=== PATIENT | female | born 1990 | race African-American/Black ===

== ENCOUNTER 2017-07-29 13:42 | Emergency (ER) | payer MEDICAID ==
[~2017-07-29] VITALS: Ht 154.9 cm; Wt 86.4 kg
[2017-07-29 16:00] VITALS: BP 138/78
[2017-07-29] MEDS ORDERED: SULFAMETHOX/TRIMETH DS 800-160 MG/TABLET PO ONE (17:00)
[2017-07-29] MEDS ORDERED: CEPHALEXIN MONOHYDRATE 500 MG CAPSULE PO ONE (17:00)
== END 2017-07-29 17:15 | disposition home or self-care (01) ==
LOC: EMS 13:43
DX: L73.2 Hidradenitis suppurativa (principal); N61.1 Abscess of the breast and nipple; K21.9 Gastro-esophageal reflux disease without esophagitis
CPT/HCPCS: 99283

== ENCOUNTER 2017-08-08 11:28 | Emergency (ER) | payer MEDICAID ==
[~2017-08-08] VITALS: Ht 157.5 cm; Wt 86.4 kg
[2017-08-08] MEDS ORDERED: HYDR-309 PO (11:36)
[2017-08-08] MEDS ORDERED: ANTIBIOTIC PO (11:36)
[2017-08-08 11:46] VITALS: BP 113/75
== END 2017-08-08 12:28 | disposition home or self-care (01) ==
LOC: EMS 11:29
DX: L73.2 Hidradenitis suppurativa (principal); K21.9 Gastro-esophageal reflux disease without esophagitis
CPT/HCPCS: 99282

== ENCOUNTER 2017-11-16 12:09 | Emergency (ER) | payer MEDICAID ==
[~2017-11-16] VITALS: Ht 154.9 cm; Wt 90.9 kg
[~2017-11-16 12:09] MED LIST: ANTIBIOTIC PO; HYDR-309 PO
[2017-11-16] MEDS ORDERED: KETOROLAC TROMETHAMINE 60 MG/2 ML VIAL IM ONE (13:45)
[2017-11-16 13:50] VITALS: BP 127/95
== END 2017-11-16 14:24 | disposition home or self-care (01) ==
LOC: EMS 12:10
DX: S29.012A Strain of muscle and tendon of back wall of thorax, initial encounter (principal); S39.012A Strain of muscle, fascia and tendon of lower back, initial encounter; K21.9 Gastro-esophageal reflux disease without esophagitis; V49.9XXA Car occupant (driver) (passenger) injured in unspecified traffic accident, initial encounter; Y93.89 Activity, other specified; Y92.89 Other specified places as the place of occurrence of the external cause; Y99.8 Other external cause status
CPT/HCPCS: 96372; 99283; J1885

== ENCOUNTER 2018-01-14 10:25 | Emergency (ER) | payer MEDICAID ==
[~2018-01-14] VITALS: Ht 154.9 cm; Wt 86.0 kg
[2018-01-14] MEDS ORDERED: IBUP-2071 PO (10:49)
[2018-01-14 11:29] VITALS: BP 138/75
[2018-01-14] MEDS ORDERED: IBUPROFEN 800 MG TABLET PO ONE (11:30)
== END 2018-01-14 11:51 | disposition home or self-care (01) ==
LOC: EMS 10:26
DX: L73.2 Hidradenitis suppurativa (principal); R03.0 Elevated blood-pressure reading, without diagnosis of hypertension; Z79.899 Other long term (current) drug therapy; Z98.890 Other specified postprocedural states; Z83.3 Family history of diabetes mellitus
CPT/HCPCS: 99283

== ENCOUNTER 2018-02-05 18:55 | Emergency (ER) | payer MEDICAID ==
[~2018-02-05] VITALS: Ht 157.5 cm; Wt 95.5 kg
[~2018-02-05 18:55] MED LIST changes: -ANTIBIOTIC PO; -HYDR-309 PO; +IBUP-2071 PO
[2018-02-05 20:43] LABS: APPEARANCE,URINE CLEAR (CLEAR); BILIRUBIN,URINE NEGATIVE (NEGATIVE); GLUCOSE, URINE (UA) NEGATIVE (NEGATIVE); KETONES,URINE NEGATIVE (NEGATIVE); LEUKOCYTE ESTERASE ,URINE NEGATIVE (NEGATIVE); NITRATE,URINE NEGATIVE (NEGATIVE); PROTEIN,URINE NEGATIVE (NEGATIVE); UROBILINOGEN,URINE 0.2 mg/dL (<=1.0)
[2018-02-05 20:50] LABS: AMPHET/METH SCREEN,URINE NEGATIVE (NEGATIVE); CANNABINOID SCREEN,URINE POSITIVE (NEGATIVE); METHADONE SCREEN, URINE NEGATIVE (NEGATIVE); OPIATE SCREEN,URINE NEGATIVE (NEGATIVE)
[2018-02-05 20:52] LABS: BACTERIA,URINE None Seen /HPF (None Seen); OCCULT BLOOD,URINE TRACE (NEGATIVE); RBC,URINE 0-2 /HPF (0-2); SQUAMOUS EPITHELIAL CELL,UR Rare /LPF (None Seen); WBC,URINE 0-2 /HPF (0-5)
[2018-02-05 20:57] LABS: EOSINOPHILS % (AUTO) 2.6 % (1.0-6.0); HEMATOCRIT 39.6 % (36-46); HEMOGLOBIN 13.4 g/dL (12.0-16.0); LYMPHOCYTES # (AUTO) 2.5 K/uL (1.0-4.8); LYMPHOCYTES % (AUTO) 25.8 % (22.0-44.0); MEAN CORPUSCULAR HEMOGLOBIN 29.1 pg (26.0-34.0); MEAN CORPUSCULAR HGB CONC 33.9 G/dL (31.0-37.0); MEAN CORPUSCULAR VOLUME 86 fL (80-100); MONOCYTES # (AUTO) 0.7 K/uL (0.1-1.0); MONOCYTES % (AUTO) 6.7 % (2.0-9.0); NEUTROPHILS # (AUTO) 6.3 K/uL (1.8-7.7); NEUTROPHILS % (AUTO) 63.9 % (40.0-70.0); PLATELET COUNT (AUTO) 253 K/uL (150-450); RED BLOOD CELL COUNT(AUTO) 4.61 MIL/uL (4.00-5.20); RED CELL DISTRIBUTION WIDTH 13.2 % (11.5-14.5)
[2018-02-05 20:58] LABS: BARBITURATE SCREEN, URINE NEGATIVE (NEGATIVE); BENZODIAZEPINES SCREEN,URINE NEGATIVE (NEGATIVE); COCAINE SCREEN,URINE NEGATIVE (NEGATIVE)
[2018-02-05 21:00] LABS: PHENCYCLIDINE SCREEN,URINE NEGATIVE (NEGATIVE)
[2018-02-05 21:06] LABS: ANION GAP 8 mmol/L (8-16); CALCIUM, TOTAL 8.8 mg/dL (8.8-10.5); CARBON DIOXIDE 25 mmol/L (22-29); CHLORIDE 106 mmol/L (98-107); CREATININE 0.74 mg/dL (0.60-1.30); GLOMERULAR FILTR. RATE CALC > 60 mL/min (>60); GLUCOSE,RANDOM 122 mg/dL (70-110); POTASSIUM 3.7 mmol/L (3.5-5.1); SODIUM SERUM 139 mmol/L (136-145); UREA NITROGEN, BLOOD 11 mg/dL (7-18)
[2018-02-05 21:12] LABS: ALANINE AMINOTRANSFERASE 33 U/L (12-78); ALBUMIN 3.7 g/dL (3.4-5.0); ALKALINE PHOSPHATASE 98 U/L (46-116); ASPARTATE AMINOTRANSFERASE 14 U/L (15-37); BILIRUBIN,TOTAL 0.4 mg/dL (0.1-1.0); TOTAL PROTEIN, SERUM 7.3 g/dL (6.4-8.2)
[2018-02-05 22:27] VITALS: BP 123/81
== END 2018-02-05 22:29 | disposition home or self-care (01) ==
LOC: EMS 18:56
DX: R07.89 Other chest pain (principal); K21.9 Gastro-esophageal reflux disease without esophagitis
CPT/HCPCS: 93005; 99285

== ENCOUNTER 2018-03-17 20:57 | Emergency (ER) | payer SELFPAY ==
[~2018-03-17] VITALS: Ht 157.5 cm; Wt 95.6 kg
[2018-03-17 21:43] VITALS: BP 126/70
[2018-03-17] MEDS ORDERED: CefTRIAXone SODIUM 1 GM/VIAL IM ONE (21:45)
[2018-03-17] MEDS ORDERED: SULFAMETHOX/TRIMETH DS 800-160 MG/TABLET PO ONE (21:45)
[2018-03-17] MEDS ORDERED: LIDOCAINE HCL/PF 1% 2 ML VIAL IM ONE (21:45)
[2018-03-17] MEDS ORDERED: IBUPROFEN 800 MG TABLET PO ONE (21:45)
== END 2018-03-17 22:17 | disposition home or self-care (01) ==
LOC: EMS 20:58
DX: L73.2 Hidradenitis suppurativa (principal); K21.9 Gastro-esophageal reflux disease without esophagitis
CPT/HCPCS: 96372; 99283; J0696; J3490

== ENCOUNTER 2018-04-07 22:24 | Emergency (ER) | payer SELFPAY ==
[~2018-04-07] VITALS: Ht 157.5 cm; Wt 86.4 kg
[2018-04-07 23:05] VITALS: BP 142/84
[2018-04-07] MEDS ORDERED: SULFAMETHOX/TRIMETH DS 800-160 MG/TABLET PO ONE (23:15)
[2018-04-07] MEDS ORDERED: TraMADol HCL 50 MG TABLET PO ONE (23:15)
[2018-04-07] MEDS ORDERED: CEPHALEXIN MONOHYDRATE 500 MG CAPSULE PO ONE (23:15)
== END 2018-04-07 23:17 | disposition home or self-care (01) ==
LOC: EMS 22:26
DX: L02.213 Cutaneous abscess of chest wall (principal); K21.9 Gastro-esophageal reflux disease without esophagitis
CPT/HCPCS: 99284

== ENCOUNTER 2018-05-16 22:30 | Emergency (ER) | payer SELFPAY ==
[~2018-05-16] VITALS: Ht 157.5 cm; Wt 95.5 kg
[2018-05-17 02:08] VITALS: BP 122/71
[2018-05-17] MEDS ORDERED: CLINDAMYCIN HCL 150 MG CAPSULE PO ONE (02:15)
== END 2018-05-17 02:38 | disposition home or self-care (01) ==
LOC: EMS 22:31
DX: L73.2 Hidradenitis suppurativa (principal); K21.9 Gastro-esophageal reflux disease without esophagitis
CPT/HCPCS: 99283

== ENCOUNTER 2018-05-26 10:23 | Emergency (ER) | payer SELFPAY ==
[~2018-05-26] VITALS: Ht 157.5 cm; Wt 95.5 kg
[2018-05-26] MEDS ORDERED: DEXAMETHASONE SOD PHOS 4 MG/ML 5 ML VIAL IM ONE (11:30)
[2018-05-26] MEDS ORDERED: MAALOX/LIDOCAINE/NYSTATIN SUSP 5 ML ORAL.SYG MM ONE (11:30)
[2018-05-26] MEDS ORDERED: KETOROLAC TROMETHAMINE 30 MG/ML VIAL IM ONE (12:15)
[2018-05-26 12:47] VITALS: BP 128/79
== END 2018-05-26 12:51 | disposition home or self-care (01) ==
LOC: EMS 10:28
DX: J02.8 Acute pharyngitis due to other specified organisms (principal); B97.89 Other viral agents as the cause of diseases classified elsewhere; K21.9 Gastro-esophageal reflux disease without esophagitis
CPT/HCPCS: 87430; 96372; 99284; J1100; J1885

== ENCOUNTER 2018-06-16 21:09 | Emergency (ER) | payer SELFPAY ==
[~2018-06-16] VITALS: Ht 157.5 cm; Wt 95.5 kg
[2018-06-16] MEDS ORDERED: CEPHALEXIN MONOHYDRATE 500 MG CAPSULE PO ONE (22:15)
[2018-06-16] MEDS ORDERED: SULFAMETHOX/TRIMETH DS 800-160 MG/TABLET PO ONE (22:15)
[2018-06-16] MEDS ORDERED: ACETAMINOPHEN 500 MG TABLET PO ONE (22:15)
[2018-06-16 22:44] VITALS: BP 130/74
== END 2018-06-16 23:08 | disposition home or self-care (01) ==
LOC: EMS 21:10
DX: L73.2 Hidradenitis suppurativa (principal); K21.9 Gastro-esophageal reflux disease without esophagitis
CPT/HCPCS: 99284

== ENCOUNTER 2018-06-19 22:50 | Emergency (ER) | payer SELFPAY ==
[~2018-06-19] VITALS: Ht 157.5 cm; Wt 95.5 kg
[2018-06-19 23:18] VITALS: BP 133/78
== END 2018-06-20 00:13 | disposition home or self-care (01) ==
LOC: EMS 22:51
DX: L73.2 Hidradenitis suppurativa (principal); K21.9 Gastro-esophageal reflux disease without esophagitis
CPT/HCPCS: 99281

== ENCOUNTER 2018-06-30 22:24 | Emergency (ER) | payer MEDICAID ==
[~2018-06-30] VITALS: Ht 157.5 cm; Wt 95.5 kg
[2018-07-01] MEDS ORDERED: DOXYCYCLINE HYCLATE 100 MG CAPSULE PO ONE (01:15)
[2018-07-01] MEDS: LIDOCAINE HCL 2%/EPI 1:200,000/PF 20 ML VIAL INJ ONE ×2 (01:25→02:38)
[2018-07-01 02:09] VITALS: BP 129/77
== END 2018-07-01 02:58 | disposition home or self-care (01) ==
LOC: EMS 22:25
DX: N61.1 Abscess of the breast and nipple (principal); L73.2 Hidradenitis suppurativa; N61.0 Mastitis without abscess; K21.9 Gastro-esophageal reflux disease without esophagitis
CPT/HCPCS: 99283; J2001

== ENCOUNTER 2018-07-06 18:03 | Emergency (ER) | payer SELFPAY ==
[~2018-07-06] VITALS: Ht 157.5 cm; Wt 95.4 kg
[2018-07-06] MEDS ORDERED: OxyCODONE HCL/ACETAMINOPHEN 5-325 MG TABLET PO ONE (18:45)
[2018-07-06 19:57] VITALS: BP 125/84
== END 2018-07-06 19:58 | disposition home or self-care (01) ==
LOC: EMS 18:04
DX: S16.1XXA Strain of muscle, fascia and tendon at neck level, initial encounter (principal); S30.0XXA Contusion of lower back and pelvis, initial encounter; K21.9 Gastro-esophageal reflux disease without esophagitis; V49.40XA Driver injured in collision with unspecified motor vehicles in traffic accident, initial encounter; Y93.89 Activity, other specified; Y92.89 Other specified places as the place of occurrence of the external cause; Y99.8 Other external cause status
CPT/HCPCS: 72125; 72131; 99284

== ENCOUNTER 2019-01-12 15:55 | Emergency (ER) | payer MEDICAID ==
[~2019-01-12] VITALS: Ht 154.9 cm; Wt 86.4 kg
[2019-01-12 16:25] VITALS: BP 120/47
== END 2019-01-12 20:27 | disposition home or self-care (01) ==
LOC: EMS 15:57
DX: S63.601A Unspecified sprain of right thumb, initial encounter (principal); K21.9 Gastro-esophageal reflux disease without esophagitis; W23.0XXA Caught, crushed, jammed, or pinched between moving objects, initial encounter; Y93.89 Activity, other specified; Y92.89 Other specified places as the place of occurrence of the external cause; Y99.8 Other external cause status

== ENCOUNTER 2019-11-02 12:56 | Emergency (ER) | payer MEDICAID ==
[~2019-11-02] VITALS: Ht 170.2 cm; Wt 97.7 kg
[2019-11-02] MEDS ORDERED: ADAL10SY2 SQ (13:07)
[2019-11-02 16:30] VITALS: BP 121/84
[2019-11-02] MEDS ORDERED: HYDROCODONE/ACETAMINOPHEN 5-325 MG TABLET PO ONE (17:00)
== END 2019-11-02 17:10 | disposition home or self-care (01) ==
LOC: EMS 12:57
DX: L73.2 Hidradenitis suppurativa (principal); R07.89 Other chest pain; K21.9 Gastro-esophageal reflux disease without esophagitis; Z98.890 Other specified postprocedural states; Z79.899 Other long term (current) drug therapy

== ENCOUNTER 2020-09-08 12:22 | Emergency (ER) | payer MEDICAID ==
[~2020-09-08] VITALS: Ht 152.4 cm; Wt 96.4 kg
[~2020-09-08 12:22] MED LIST changes: +ADAL10SY2 SQ; -IBUP-2071 PO
[2020-09-08] MEDS ORDERED: IBUP-2759 PO (12:35)
[2020-09-08 14:31] VITALS: BP 141/88
== END 2020-09-08 14:31 | disposition home or self-care (01) ==
LOC: EMS 12:22
DX: L73.2 Hidradenitis suppurativa (principal); K21.9 Gastro-esophageal reflux disease without esophagitis
CPT/HCPCS: Z7502

== ENCOUNTER 2021-02-18 13:09 | Emergency (ER) | payer MEDICAID ==
[~2021-02-18] VITALS: Ht 154.9 cm; Wt 94.5 kg
[~2021-02-18 13:09] MED LIST changes: +IBUP-2759 PO
[2021-02-18] MEDS ORDERED: KETOROLAC TROMETHAMINE 30 MG/ML VIAL IVP ONE (13:45)
[2021-02-18 13:58] LABS: BASOPHILS % (AUTO) 2.3 % (0.0-2.0); EOSINOPHILS % (AUTO) 3.5 % (1.0-6.0); HEMATOCRIT 40.3 % (36-46); HEMOGLOBIN 13.2 g/dL (12.0-16.0); LYMPHOCYTES # (AUTO) 2.5 K/uL (1.0-4.8); LYMPHOCYTES % (AUTO) 41.9 % (22.0-44.0); MEAN CORPUSCULAR HGB CONC 32.8 G/dL (31.0-37.0); MEAN CORPUSCULAR VOLUME 89 fL (80-100); MONOCYTES # (AUTO) 0.4 K/uL (0.1-1.0); MONOCYTES % (AUTO) 6.8 % (2.0-9.0); NEUTROPHILS # (AUTO) 2.8 K/uL (1.8-7.7); NEUTROPHILS % (AUTO) 45.5 % (40.0-70.0); PLATELET COUNT (AUTO) 228 K/uL (150-450); RED BLOOD CELL COUNT(AUTO) 4.56 MIL/uL (4.00-5.20)
[2021-02-18 14:10] LABS: ANION GAP 11 mmol/L (8-16); CARBON DIOXIDE 26 mmol/L (22-29); CHLORIDE 104 mmol/L (98-107); CREATININE 0.81 mg/dL (0.60-1.30); GLOMERULAR FILTR. RATE CALC > 60 mL/min (>60); GLUCOSE,RANDOM 99 mg/dL (70-110); POTASSIUM 3.7 mmol/L (3.5-5.1); SODIUM SERUM 141 mmol/L (136-145); UREA NITROGEN, BLOOD 9 mg/dL (7-18)
[2021-02-18 14:21] LABS: ALANINE AMINOTRANSFERASE 30 U/L (12-78); ALBUMIN 3.9 g/dL (3.4-5.0); ALKALINE PHOSPHATASE 68 U/L (46-116); ASPARTATE AMINOTRANSFERASE 13 U/L (15-37); BILIRUBIN,TOTAL 0.4 mg/dL (0.1-1.0); HCG,QUANTITATIVE < 1 mIU/mL (0-6); LIPASE 321 U/L (73-393); TOTAL PROTEIN, SERUM 7.5 g/dL (6.4-8.2)
[2021-02-18 15:04] LABS: APPEARANCE,URINE CLOUDY (CLEAR); BILIRUBIN,URINE NEGATIVE (NEGATIVE); GLUCOSE, URINE (UA) NEGATIVE (NEGATIVE); KETONES,URINE NEGATIVE (NEGATIVE); LEUKOCYTE ESTERASE ,URINE SMALL (NEGATIVE); NITRATE,URINE NEGATIVE (NEGATIVE); OCCULT BLOOD,URINE NEGATIVE (NEGATIVE); PROTEIN,URINE NEGATIVE (NEGATIVE); UROBILINOGEN,URINE 0.2 mg/dL (<=1.0)
[2021-02-18 15:19] LABS: BACTERIA,URINE Few /HPF (None Seen); SQUAMOUS EPITHELIAL CELL,UR Many /LPF (None Seen)
[2021-02-18 17:30] VITALS: BP 121/69
== END 2021-02-18 18:26 | disposition home or self-care (01) ==
LOC: EMS 13:12
DX: N39.0 Urinary tract infection, site not specified (principal); K21.9 Gastro-esophageal reflux disease without esophagitis
CPT/HCPCS: 36415; 74176; 80053; 81001; 83690; 84702; 85025; 87086; 87210; 87491; 87591; 96374; 99285; J1885

== ENCOUNTER 2021-11-21 08:16 | Emergency (ER) | payer MEDICAID ==
[~2021-11-21] VITALS: Ht 154.9 cm; Wt 95.0 kg
[2021-11-21 09:31] LABS: BASOPHILS % (AUTO) 1.5 % (0.0-2.0); EOSINOPHILS % (AUTO) 1.4 % (1.0-6.0); HEMATOCRIT 45.4 % (36-46); HEMOGLOBIN 14.9 g/dL (12.0-16.0); LYMPHOCYTES # (AUTO) 2.4 K/uL (1.0-4.8); LYMPHOCYTES % (AUTO) 53.2 % (22.0-44.0); MEAN CORPUSCULAR HEMOGLOBIN 28.7 pg (26.0-34.0); MEAN CORPUSCULAR HGB CONC 32.7 G/dL (31.0-37.0); MEAN CORPUSCULAR VOLUME 88 fL (80-100); MONOCYTES # (AUTO) 0.7 K/uL (0.1-1.0); MONOCYTES % (AUTO) 14.5 % (2.0-9.0); NEUTROPHILS # (AUTO) 1.3 K/uL (1.8-7.7); NEUTROPHILS % (AUTO) 29.4 % (40.0-70.0); RED BLOOD CELL COUNT(AUTO) 5.18 MIL/uL (4.00-5.20); RED CELL DISTRIBUTION WIDTH 13.5 % (11.5-14.5)
[2021-11-21 10:25] LABS: PLATELET COUNT (AUTO) 240 K/uL (150-450)
[2021-11-21 11:30] VITALS: BP 122/87
== END 2021-11-21 12:07 | disposition home or self-care (01) ==
LOC: EMS 08:23
DX: O20.0 Threatened abortion (principal); K21.9 Gastro-esophageal reflux disease without esophagitis; Z3A.01 Less than 8 weeks gestation of pregnancy
CPT/HCPCS: 76801; 76817; 84702; 85025; 86901; 99284

== ENCOUNTER 2022-02-10 14:30 | Emergency (ER) | payer MEDICAID ==
[~2022-02-10] VITALS: Ht 154.9 cm; Wt 86.4 kg
[2022-02-10] MEDS ORDERED: SODIUM CHLORIDE 0.9% 1,000 ML IV ONE (15:00)
[2022-02-10] MEDS ORDERED: PYRIDOXINE HCL 50 MG TABLET PO ONE (15:00)
[2022-02-10] MEDS ORDERED: DOXYLAMINE SUCCINATE 25 MG TABLET PO ONE (15:00)
[2022-02-10 15:28] LABS: BASOPHILS % (AUTO) 0.7 % (0.0-2.0); EOSINOPHILS % (AUTO) 2.2 % (1.0-6.0); HEMATOCRIT 31.2 % (36-46); HEMOGLOBIN 10.8 g/dL (12.0-16.0); LYMPHOCYTES # (AUTO) 2.2 K/uL (1.0-4.8); MEAN CORPUSCULAR HEMOGLOBIN 29.3 pg (26.0-34.0); MEAN CORPUSCULAR HGB CONC 34.5 G/dL (31.0-37.0); MEAN CORPUSCULAR VOLUME 85 fL (80-100); MONOCYTES # (AUTO) 0.6 K/uL (0.1-1.0); MONOCYTES % (AUTO) 7.7 % (2.0-9.0); NEUTROPHILS # (AUTO) 5.2 K/uL (1.8-7.7); NEUTROPHILS % (AUTO) 63.4 % (40.0-70.0); PLATELET COUNT (AUTO) 261 K/uL (150-450); RED BLOOD CELL COUNT(AUTO) 3.67 MIL/uL (4.00-5.20); RED CELL DISTRIBUTION WIDTH 13.6 % (11.5-14.5)
[2022-02-10 15:44] LABS: ANION GAP 10 mmol/L (8-16); CALCIUM, TOTAL 9.1 mg/dL (8.8-10.5); CARBON DIOXIDE 24 mmol/L (22-29); CHLORIDE 102 mmol/L (98-107); CREATININE 0.53 mg/dL (0.60-1.30); GLUCOSE,RANDOM 85 mg/dL (70-110); POTASSIUM 3.6 mmol/L (3.5-5.1); SODIUM SERUM 136 mmol/L (136-145); UREA NITROGEN, BLOOD 6 mg/dL (7-18)
[2022-02-10 15:47] LABS: ALANINE AMINOTRANSFERASE 35 U/L (12-78); ALBUMIN 2.9 g/dL (3.4-5.0); ALKALINE PHOSPHATASE 72 U/L (46-116); ASPARTATE AMINOTRANSFERASE 29 U/L (15-37); BILIRUBIN,TOTAL 0.1 mg/dL (0.1-1.0); TOTAL PROTEIN, SERUM 7.1 g/dL (6.4-8.2)
[2022-02-10 15:48] LABS: GLOMERULAR FILTR. RATE CALC > 60 mL/min (>60)
[2022-02-10 16:30] VITALS: BP 128/69
[2022-02-10] MEDS ORDERED: DOXY1TAB3 PO (16:42)
== END 2022-02-10 17:00 | disposition home or self-care (01) ==
LOC: EMS 14:33
DX: O21.8 Other vomiting complicating pregnancy (principal); K21.9 Gastro-esophageal reflux disease without esophagitis; Z79.899 Other long term (current) drug therapy; Z3A.19 19 weeks gestation of pregnancy
CPT/HCPCS: 80053; 85025; 96360; 99283; 36415-L1; 36415-TC

== ENCOUNTER 2022-12-05 10:58 | Emergency (ER) | payer MEDICAID ==
[~2022-12-05] VITALS: Ht 154.9 cm; Wt 95.5 kg
[~2022-12-05 10:58] MED LIST changes: +DOXY1TAB3 PO; -IBUP-2759 PO; +IBUP-45 PO
[2022-12-05] MEDS ORDERED: OxyCODONE HCL/ACETAMINOPHEN 5-325 MG TABLET PO ONE (13:00)
[2022-12-05] MEDS ORDERED: SULF-261 PO (13:31)
[2022-12-05] MEDS ORDERED: OXYC-38 PO (13:31)
[2022-12-05 13:51] VITALS: BP 140/74
== END 2022-12-05 13:52 | disposition home or self-care (01) ==
LOC: EMS 11:03
DX: L03.111 Cellulitis of right axilla (principal); L73.2 Hidradenitis suppurativa; Z98.890 Other specified postprocedural states
CPT/HCPCS: 99284; Z7502; Z7610

== ENCOUNTER 2023-02-18 19:46 | Emergency (ER) | payer MEDICAID ==
[~2023-02-18] VITALS: Ht 152.4 cm; Wt 98.6 kg
[~2023-02-18 19:46] MED LIST changes: -DOXY1TAB3 PO; +OXYC-38 PO; +SULF-261 PO
[2023-02-18] MEDS ORDERED: DOXYCYCLINE HYCLATE 100 MG TABLET PO ONE (22:45)
[2023-02-18] MEDS ORDERED: IBUPROFEN 600 MG TABLET PO ONE (22:45)
[2023-02-18 23:22] VITALS: BP 127/68
[2023-02-18] MEDS ORDERED: IBUP-1492 PO (23:28)
[2023-02-18] MEDS ORDERED: DOXY-354 PO (23:28)
== END 2023-02-18 23:50 | disposition home or self-care (01) ==
LOC: EMS 19:46
DX: L73.2 Hidradenitis suppurativa (principal); L03.311 Cellulitis of abdominal wall; Z98.890 Other specified postprocedural states; Z90.89 Acquired absence of other organs
CPT/HCPCS: 99283

== ENCOUNTER 2023-11-23 13:56 | Emergency (ER) | payer MEDICAID ==
[~2023-11-23] VITALS: Ht 152.4 cm; Wt 95.5 kg
[~2023-11-23 13:56] MED LIST changes: -ADAL10SY2 SQ; +DOXY-354 PO; +IBUP-1492 PO; -IBUP-45 PO; -OXYC-38 PO; -SULF-261 PO
[2023-11-23 14:00] VITALS: BP 115/55; PULSE 102; RESP 15; TEMP 98.3
[2023-11-23] MEDS ORDERED: IBUP-1554 PO (14:57)
[2023-11-23] MEDS ORDERED: PERTUSS(ACELL),DIPH,TET VAC/PF 0.5 ML SYRINGE IM. ONE (15:00)
== END 2023-11-23 15:42 | disposition home or self-care (01) ==
LOC: EMS 13:59
DX: S61.307A Unspecified open wound of left little finger with damage to nail, initial encounter (principal); Z90.89 Acquired absence of other organs; Z98.890 Other specified postprocedural states; X58.XXXA Exposure to other specified factors, initial encounter; Y93.89 Activity, other specified; Y92.89 Other specified places as the place of occurrence of the external cause; Y99.8 Other external cause status
CPT/HCPCS: 90471; 90715; 99283

== ENCOUNTER 2025-01-04 10:07 | Emergency (ER) | payer MEDICAID ==
[~2025-01-04] VITALS: Ht 154.9 cm; Wt 91.8 kg
[~2025-01-04 10:07] MED LIST changes: -DOXY-354 PO; -IBUP-1492 PO; +IBUP-1554 PO
[2025-01-04 10:11] VITALS: TEMP 98
[2025-01-04 12:01] VITALS: BP 123/89; PULSE 102; RESP 16; O2SAT 98
== END 2025-01-04 12:26 | disposition home or self-care (01) ==
LOC: EMS 10:20
DX: S90.111A Contusion of right great toe without damage to nail, initial encounter (principal); W20.8XXA Other cause of strike by thrown, projected or falling object, initial encounter; Y93.89 Activity, other specified; Y92.89 Other specified places as the place of occurrence of the external cause; Y99.8 Other external cause status
CPT/HCPCS: 99283

== ENCOUNTER 2025-08-05 10:53 | Emergency (ER) | payer MEDICAID ==
[~2025-08-05] VITALS: Ht 152.4 cm; Wt 77.3 kg
[2025-08-05 10:56] VITALS: TEMP 99
[2025-08-05] MEDS ORDERED: DOXY50 PO (10:59)
[2025-08-05] MEDS ORDERED: TIRZ15PE3 SQ (10:59)
[2025-08-05] MEDS ORDERED: SECU150P IM (10:59)
[2025-08-05 11:10] VITALS: BP 119/74; PULSE 105; RESP 17; O2SAT 98
[2025-08-05] MEDS: LIDOCAINE 1% 10 ML VIAL SQ ONE (11:21)
[2025-08-05] MEDS: SULFAMETHOX/TRIMETH DS 800-160 MG/TABLET PO ONE (11:21)
[2025-08-05] MEDS: CEPHALEXIN MONOHYDRATE 500 MG CAPSULE PO ONE (11:21)
[2025-08-05] MEDS: ACETAMINOPHEN 500 MG TABLET PO ONE (11:22)
[2025-08-05] MEDS: BACITRACIN 0.9 GM PACKET OINTMENT TP ONE (11:22)
[2025-08-05] MEDS ORDERED: SULF-261 PO (11:31)
[2025-08-05] MEDS ORDERED: CEPH-558 PO (11:31)
== END 2025-08-05 12:04 | disposition home or self-care (01) ==
LOC: EMS 10:53
DX: L02.411 Cutaneous abscess of right axilla (principal); Z79.2 Long term (current) use of antibiotics; Z90.89 Acquired absence of other organs; Z98.890 Other specified postprocedural states; Z79.899 Other long term (current) drug therapy
CPT/HCPCS: 99284; 10060; J3490